=== PATIENT | male | born 1985 | race Caucasian/White ===

== ENCOUNTER 2016-09-20 12:55 | Emergency (ER) | payer BC ==
--- NOTE | 2016-09-20 13:20 | ED ---
General Adult HPI - General Chief complaint: Skin/Abscess/Foreign Body Stated complaint: Cyst Time Seen by Provider: 09/20/16 13:09 Source: patient, RN notes reviewed Mode of arrival: ambulatory Limitations: no limitations - History of Present Illness Initial comments: This is a 30-year-old male who presents with a pilonidal abscess. Patient states this runs in his family and both his dad and his brother has had similar symptoms in the past. Patient states it started on Sunday and the pain has gotten progressively worse. Patient states he started taking hot showers and the abscess started draining on its own. Patient denies any fever/chills, nausea/vomiting/diarrhea. Patient denies any recent shortness breath, chest pain, abdominal pain, back pain, numbness, tingling, hematuria, headache, or visual changes, or any other complaints. - Related Data Home Medications Medication Instructions Recorded Confirmed Albuterol Inhaler [Ventolin Hfa 1 - 2 puff INHALATION Q6HR PRN 09/13/15 09/20/16 Inhaler] Phentermine HCl [Adipex-P] 37.5 mg PO QAM 09/20/16 09/20/16 Previous Rx's Medication Instructions Recorded Acetaminophen-Codeine 300-30mg 1 tab PO Q6H #12 tablet 09/20/16 [Tylenol #3] Sulfamethox-Tmp 800-160Mg [Bactrim 1 tab PO Q12HR #28 tab 09/20/16 DS 800-160 mg] Allergies Allergy/AdvReac Type Severity Reaction Status Date / Time Penicillins Allergy Unknown Verified 09/20/16 13:05 Review of Systems ROS Statement: Those systems with pertinent positive or pertinent negative responses have been documented in the HPI. ROS Other: All systems not noted in ROS Statement are negative. Past Medical History Past Medical History: Asthma Additional Past Medical History / Comment(s): environmental allergies History of Any Multi-Drug Resistant Organisms: None Reported Past Surgical History: No Surgical Hx Reported Past Psychological History: No Psychological Hx Reported Smoking Status: Current every day smoker Past Alcohol Use History: Occasional Past Drug Use History: None Reported General Exam - General Exam Comments Initial Comments: General: The patient is awake and alert, in no distress, and does not appear acutely ill. Neck: The neck is supple, there is no tenderness or JVD. Cardiovascular: There is a regular rate and rhythm. No murmur, rub or gallop is appreciated. Respiratory: Lungs are clear to auscultation, respirations are non-labored, breath sounds are equal. No wheezes, stridor, rales, or rhonchi. Musculoskeletal: Normal ROM, no tenderness. Strength 5/5. Sensation intact. Radial pulses equal bilaterally 2+. Neurological: A&O x 3. CN II-XII intact, There are no obvious motor or sensory deficits. Coordination appears grossly intact. Speech is normal. Skin: There is erythema, swelling and warmth to the intergluteal cleft consistent with pilonidal abscess. This area is draining sanguinous fluid. This area is tender to palpation. Skin is warm and dry and no rashes. Psychiatric: Cooperative, appropriate mood & affect, normal judgment. Limitations: no limitations Course Vital Signs 09/20/16 13:06 Temperature 99.5 F Pulse Rate 105 H Respiratory 18 Rate Blood Pressure 119/67 O2 Sat by Pulse 96 Oximetry Procedures - Procedures Initial comment: Procedure: Incision and drainage The skin overlying the abscess was prepped with Betadine, and anesthetized with 1% lidocaine without epinephrine. A #11 scalpel was then used to incise the abscess. Some purulent material was then extracted from the lesion. Wound culture obtained. Gauze dressing placed on top, The patient tolerated the procedure well. Medical Decision Making - Medical Decision Making Is a 30-year-old male presents with pilonidal abscess since Sunday. On physical exam There is erythema, swelling and warmth to the intergluteal cleft consistent with pilonidal abscess. This area is draining sanguinous fluid. This area is tender to palpation. Procedure: Incision and drainage The skin overlying the abscess was prepped with Betadine, and anesthetized with 1% lidocaine without epinephrine. A #11 scalpel was then used to incise the abscess. Some purulent material was then extracted from the lesion. Wound culture obtained. Gauze dressing placed on top, The patient tolerated the procedure well. Discussed the patient should continue warm compresses to the area. I discussed the patient should finish the entire course of antibiotics and these pain medication as prescribed. I discussed return parameters. I discussed the patient is to follow-up with Gen. surgery for further evaluation. Discussed that patient should follow up with PCP in one to 2 days or return to the [facility] for any worsening symptoms or for any further concerns. Patient was receptive to this plan and patient will be discharged home. Disposition Clinical Impression: Pilonidal abscess Disposition: HOME SELF-CARE Condition: Good Instructions: Abscess (ED) Additional Instructions: Please keep warm compresses on the area. Please finish entire course of antibiotics. Please use pain medication as prescribed. Please follow-up with Gen. surgery for further evaluation. Please follow-up with family doctor in the next 2 days of symptoms have not improved. Please return to emergency room if the symptoms increase or worsen or for any other concerns. Prescriptions: Acetaminophen-Codeine 300-30mg [Tylenol #3] 1 tab PO Q6H #12 tablet Sulfamethox-Tmp 800-160Mg [Bactrim DS 800-160 mg] 1 tab PO Q12HR #28 tab Referrals: Arian San MD [Primary Care Provider] - 1-2 days Gay Osorio MD [STAFF PHYSICIAN] - 1-2 days Time of Disposition: 13:38
[2016-09-20 13:47] VITALS: BP 136/68; PULSE 99; RESP 20; TEMP 98.9
== END 2016-09-20 13:50 | disposition home or self-care (01) ==
LOC: EC 12:55
DX: L05.01 Pilonidal cyst with abscess (principal); F17.200 Nicotine dependence, unspecified, uncomplicated; Z88.0 Allergy status to penicillin; Z79.899 Other long term (current) drug therapy
CPT/HCPCS: 10080; 87070; 87205; 99283

== ENCOUNTER 2017-06-17 20:44 | Emergency (ER) | payer BC ==
[2017-06-17] MEDS ORDERED: IBUPROFEN 600 MG STARTER PACK 4 TAB BTL PO STA (21:19)
--- NOTE | 2017-06-17 21:31 | ED ---
General Adult HPI - General Chief complaint: Extremity Injury, Lower Stated complaint: R foot injury Time Seen by Provider: 06/17/17 21:10 Source: patient, RN notes reviewed Mode of arrival: ambulatory Limitations: no limitations - History of Present Illness Initial comments: Chief complaint history of present illness is a 31-year-old male here for complaint of pain to his lateral aspect of his right foot. Patient reports that he twisted it was walking through the [place] this morning. - Related Data Home Medications Medication Instructions Recorded Confirmed Albuterol Sulfate [Proair 1 puff PO RT-QID PRN 06/17/17 06/17/17 Respiclick] Dextroamphetamine/Amphetamine 15 mg PO BID 06/17/17 06/17/17 [Adderall] Dextroamphetamine/Amphetamine 25 mg PO DAILY 06/17/17 06/17/17 [Mydayis ER 25 mg Capsule] Previous Rx's Medication Instructions Recorded Ibuprofen [Motrin] 600 mg PO Q6HR PRN #20 tab 06/17/17 Allergies Allergy/AdvReac Type Severity Reaction Status Date / Time Penicillins Allergy Rash/Hives Verified 06/17/17 21:22 Review of Systems ROS Statement: Those systems with pertinent positive or pertinent negative responses have been documented in the HPI. Review of systems no other complaints of the pain to his right foot. It is noted the patient had temperature 100. He denies any particular source. Denies any headache no sore throat no cough chest pain intestinal problems no skin issues no skin problems no GI or problems. Past medical problems asthma and environmental ALLERGIES. Denies a surgical history family history noncontributory has ALLERGIES to penicillin. States he drank alcohol this morning ,smokes daily, encouraged to stop. ROS Other: All systems not noted in ROS Statement are negative. Past Medical History Past Medical History: Asthma Additional Past Medical History / Comment(s): environmental allergies History of Any Multi-Drug Resistant Organisms: None Reported Past Surgical History: No Surgical Hx Reported Past Psychological History: No Psychological Hx Reported Smoking Status: Current every day smoker Past Alcohol Use History: Occasional Past Drug Use History: None Reported General Exam - General Exam Comments Initial Comments: General: The patient is awake and alert, lying of pain to the mid lateral aspect of his right foot. Vital signs shows temperature 101 pulse 1:30 her story rate 20 pulse ox 97% room air blood pressure 136/76. Patient denies any possible source for infection, denies feeling sick. He will receive ibuprofen for fever and pain of his foot. Eye: Pupils are equal, round and reactive to light, extra-ocular movements are intact ; there is normal conjunctiva bilaterally. No signs of icterus. Ears, nose, mouth and throat: There are moist mucous membranes and no oral lesions. Neck: The neck is supple, no meningeal irritation no stiff neck, no anterior cervical lymphadenopathy. Cardiovascular: Tachycardic heart rate, initially 1:30.. No murmur, rub or gallop is appreciated. Respiratory: Lungs are clear to auscultation, respirations are non-labored, breath sounds are equal. No wheezes, stridor, rales, or rhonchi. Gastrointestinal: Soft, non-distended, non-tender abdomen without masses or organomegaly noted. There is no rebound or guarding present. No CVA tenderness. Bowel sounds are unremarkable. No complaint of nausea vomiting, no symptoms or complaints. Back: There is no tenderness to palpation in the midline. There is no obvious deformity. Denies any rashes. Musculoskeletal: Pain to his right foot lateral aspect proximal metatarsal area. Denies muscle aches and pains. Neurological: No neuro deficits, no complaints of any weakness. Skin: Skin is warm and dry and no rashes or lesions are noted. Limitations: no limitations Course Vital Signs 06/17/17 20:56 Temperature 101 F H Pulse Rate 130 H Respiratory 20 Rate Blood Pressure 136/76 O2 Sat by Pulse 97 Oximetry Medical Decision Making - Medical Decision Making Medical decision making; the patient's foot was x-rayed 3 views and reviewed by radiologist his findings are there is no acute fracture dislocation evident on the right foot. The joint spaces in the right foot appear within normal limits. Mild hallux valgus is noted. The overlying soft tissue appears unremarkable. Impression there is no acute fracture or dislocation in the right foot. As read by Dr. blackwell. The patient had an Sage wrap applied. We discussed foot and ankle sprains. These x-rays were reviewed by radiologist and no acute bony pathology appreciated. No evidence of ligamentous injury in the midfoot was reported by the radiologist. Patient was advised to follow-up with family physician and if pain persists repeat x-ray in 7-10 days may be necessary to rule out occult fracture. Patient will be placed on ibuprofen 6R milligrams every 6 hours. The patient does not want any further workup for the fever he presents with today. I offered IV hydration labs and chest x-ray as well as UA but the patient declines. Told return emergency room he changes his mind. 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 Patient advised follow-up with family physician tomorrow return emergency room at any time. Disposition Clinical Impression: Right foot sprain, Moderate right ankle sprain, Fever Disposition: HOME SELF-CARE Condition: Fair Instructions: Ankle Sprain (ED), Foot Contusion (ED), Foot Sprain (ED) Additional Instructions: Sage ice elevate foot. Continue with crutches. Use ibuprofen 600 mg for pain. Follow-up with family physician tomorrow for further evaluation of the fever or return here. He may need repeat x-ray of the foot in 7-10 days if pain persists. Prescriptions: Ibuprofen [Motrin] 600 mg PO Q6HR PRN #20 tab PRN Reason: Pain Referrals: Arian San MD [Primary Care Provider] - 1-2 days Time of Disposition: 21:58
--- NOTE | 2017-06-17 21:44 | XR ---
EXAMINATION TYPE: XR foot complete RT DATE OF EXAM: 06/17/2017 CLINICAL HISTORY: Foot pain TECHNIQUE: Frontal, lateral, and oblique images of the right foot are obtained. COMPARISON: None FINDINGS: There is no acute fracture/dislocation evident in the right foot. The joint spaces in the right foot appear within normal limits. Mild hallux valgus is noted. The overlying soft tissue appe ars unremarkable. IMPRESSION: There is no acute fracture or dislocation in the right foot.
[2017-06-17 22:19] VITALS: BP 145/85; PULSE 109; RESP 18; TEMP 99.2
== END 2017-06-17 22:19 | disposition home or self-care (01) ==
LOC: EC 20:44
DX: S93.401A Sprain of unspecified ligament of right ankle, initial encounter (principal); S93.601A Unspecified sprain of right foot, initial encounter; R50.9 Fever, unspecified; J45.909 Unspecified asthma, uncomplicated; M20.11 Hallux valgus (acquired), right foot; F17.200 Nicotine dependence, unspecified, uncomplicated; Z79.899 Other long term (current) drug therapy; Z88.0 Allergy status to penicillin; X50.1XXA Overexertion from prolonged static or awkward postures, initial encounter; W01.0XXA Fall on same level from slipping, tripping and stumbling without subsequent striking against object, initial encounter; Y93.01 Activity, walking, marching and hiking
CPT/HCPCS: 99283

== ENCOUNTER 2018-08-13 10:45 | Emergency (ER) | payer BC ==
[2018-08-13 10:50] VITALS: TEMP 98
--- NOTE | 2018-08-13 11:32 | ED ---
General Adult HPI - General Chief complaint: Psychiatric Symptoms Stated complaint: General Time Seen by Provider: 08/13/18 11:06 Source: patient, RN notes reviewed, old records reviewed Mode of arrival: ambulatory Limitations: no limitations - History of Present Illness Initial comments: 32-year-old male presenting for evaluation of depression, alcoholism, and suicidal ideation. Patient has had worsening depression and has been drinking significant amount alcohol daily. He has had thoughts of suicide over the past one month. Patient states he may buy a gun to end his life, he may overdose on pills. Denies any suicide attempt today or within the past week. He has no mental health history. - Related Data Home Medications Medication Instructions Recorded Confirmed Albuterol Sulfate [Proair 1 puff PO RT-QID PRN 06/17/17 08/13/18 Respiclick] Cetirizine HCl [Zyrtec] 10 mg PO DAILY PRN 08/13/18 08/13/18 Lisdexamfetamine Dimesylate 50 mg PO QAM 08/13/18 08/13/18 [Vyvanse] Allergies Allergy/AdvReac Type Severity Reaction Status Date / Time latex Allergy Rash/Hives Verified 08/13/18 12:49 Penicillins Allergy Rash/Hives Verified 08/13/18 12:49 Review of Systems ROS Statement: Those systems with pertinent positive or pertinent negative responses have been documented in the HPI. ROS Other: All systems not noted in ROS Statement are negative. Past Medical History Past Medical History: Asthma Additional Past Medical History / Comment(s): environmental allergies History of Any Multi-Drug Resistant Organisms: None Reported Past Surgical History: No Surgical Hx Reported Additional Past Surgical History / Comment(s): scar tissue removed from urethra as a child Past Psychological History: ADD/ADHD, Depression Smoking Status: Current every day smoker Past Alcohol Use History: Abuse Past Drug Use History: Marijuana General Exam Limitations: no limitations General appearance: alert, in no apparent distress Head exam: Present: atraumatic, normocephalic Eye exam: Present: normal appearance, PERRL ENT exam: Present: normal exam Neck exam: Present: normal inspection. Absent: tenderness, meningismus Respiratory exam: Present: normal lung sounds bilaterally. Absent: respiratory distress, wheezes Cardiovascular Exam: Present: regular rate, normal rhythm GI/Abdominal exam: Present: soft. Absent: distended, tenderness, guarding Extremities exam: Present: normal inspection, normal capillary refill. Absent: pedal edema Back exam: Present: normal inspection, full ROM Neurological exam: Present: alert, oriented X3, CN II-XII intact. Absent: motor sensory deficit Psychiatric exam: Present: depressed, suicidal ideation Skin exam: Present: warm, dry, intact. Absent: cyanosis, diaphoretic Course Vital Signs 08/13/18 10:46 Temperature 98.0 F Pulse Rate 108 H Respiratory 20 Rate Blood Pressure 154/85 O2 Sat by Pulse 99 Oximetry Medical Decision Making - Medical Decision Making Patient evaluated by EPS, does not require inpatient treatment at this time. He is currently denying any suicidal plan. He is given outpatient follow-up and will stop at the psychiatrist's office on his way home today. These arrangements have been made by the EPS nurse. Patient is agreeable with plan. Continues to deny suicidal ideation when I reevaluated the patient. He contracts to safety. Safe for discharge. - Lab Data Lab Results 08/13/18 Range/Units 11:25 Urine Opiates Screen Not Detected (NotDetected) Ur Oxycodone Screen Not Detected (NotDetected) Urine Methadone Screen Not Detected (NotDetected) Ur Propoxyphene Screen Not Detected (NotDetected) Ur Barbiturates Screen Not Detected (NotDetected) U Tricyclic Antidepress Not Detected (NotDetected) Ur Phencyclidine Scrn Not Detected (NotDetected) Ur Amphetamines Screen Not Detected (NotDetected) U Methamphetamines Scrn Not Detected (NotDetected) U Benzodiazepines Scrn Not Detected (NotDetected) Urine Cocaine Screen Not Detected (NotDetected) U Marijuana (THC) Screen Detected H (NotDetected) Disposition Clinical Impression: Depression Disposition: HOME SELF-CARE Condition: Good Instructions: Depression (ED) Is patient prescribed a controlled substance at d/c from ED?: No Referrals: Arian San MD [Primary Care Provider] - 1-2 days Wilson Dalton DO [Doctor of Osteopathic Medicine] - 1-2 days Time of Disposition: 13:36
[2018-08-13 11:53] LABS: Amphetamine Screen,Urine Not Detected (NotDetected); Barbiturate Screen,Urine Not Detected (NotDetected); Benzodiazepines Screen,Urine Not Detected (NotDetected); Cocaine Screen,Urine Not Detected (NotDetected); Methadone Screen, Urine Not Detected (NotDetected); Opiate Screen,Urine Not Detected (NotDetected); Oxycodone Screen, Urine Not Detected (NotDetected); Phencyclidine Screen,Urine Not Detected (NotDetected); Tricyclic Antidepressant,Urine Not Detected (NotDetected); Urn Cannabinoid Scrn Detected (NotDetected)
[2018-08-13 13:56] VITALS: BP 142/86; PULSE 94; RESP 18
== END 2018-08-13 13:56 | disposition home or self-care (01) ==
LOC: EC 10:45
DX: F32.9 Major depressive disorder, single episode, unspecified (principal); R45.851 Suicidal ideations; F10.20 Alcohol dependence, uncomplicated; F90.9 Attention-deficit hyperactivity disorder, unspecified type; J45.909 Unspecified asthma, uncomplicated; F17.200 Nicotine dependence, unspecified, uncomplicated; Z88.0 Allergy status to penicillin; Z91.040 Latex allergy status; Z79.899 Other long term (current) drug therapy
CPT/HCPCS: 80306; 99285